=== PATIENT | male | born 1955 | race African-American/Black ===

== ENCOUNTER 2018-12-08 17:30 | Emergency (ER) | payer MEDICARE, OTHER ==
[~2018-12-08] VITALS: Ht 177.8 cm; Wt 110.0 kg
[2018-12-08 17:48] VITALS: BP 165/111
[2018-12-08] MEDS ORDERED: ACETAMINOPHEN 325MG TABLET PO ONE (19:15)
[2018-12-08] MEDS ORDERED: LIDOCAINE 1%/EPI 1:100,000 10 ML VIAL IJ ONE (19:15)
[2018-12-08] MEDS ORDERED: BACITRACIN ZINC OINT UDPKT TOP ONE (19:15)
== END 2018-12-08 19:35 | disposition home or self-care (01) ==
LOC: ER 17:30
DX: S01.01XA Laceration without foreign body of scalp, initial encounter (principal); E78.00 Pure hypercholesterolemia, unspecified; I10 Essential (primary) hypertension; R73.03 Prediabetes; W01.198A Fall on same level from slipping, tripping and stumbling with subsequent striking against other object, initial encounter; Y93.89 Activity, other specified; Y92.524 Gas station as the place of occurrence of the external cause
CPT/HCPCS: 12011; 99283; J3490

== ENCOUNTER 2018-12-24 09:49 | Emergency (ER) | payer MEDICARE, OTHER ==
[~2018-12-24] VITALS: Ht 172.7 cm; Wt 100.0 kg
[2018-12-24 10:01] VITALS: BP 134/77
== END 2018-12-24 10:46 | disposition home or self-care (01) ==
LOC: ER 09:49
DX: S01.01XD Laceration without foreign body of scalp, subsequent encounter (principal); E78.00 Pure hypercholesterolemia, unspecified; I10 Essential (primary) hypertension; I25.2 Old myocardial infarction; Z91.018 Allergy to other foods; X58.XXXD Exposure to other specified factors, subsequent encounter
CPT/HCPCS: 99281